=== PATIENT | male | born 1950 | race Caucasian/White ===

== ENCOUNTER 2023-01-26 06:57 | Outpatient (OUT) | payer MEDICARE, SELFPAY ==
[2023-01-26 07:51] LABS: Basophils Percent Auto 0.5 % (0.2-2.0); Eosinophils Absolute Auto 0.3 10^3/uL (0.0-0.7); Eosinophils Percent Auto 3.7 % (0.9-7.0); Hematocrit 44.2 % (42.0-54.0); Hemoglobin 14.7 g/dL (14.0-18.0); Immature Granulocytes Abs Auto 0.01 10^3/uL (0.00-0.03); Immature Granulocytes Pct Auto 0.1 % (0.0-0.5); Lymphocytes Absolute Auto 2.7 10^3/uL (1.2-3.8); Lymphocytes Percent Auto 35.1 % (20.5-60.0); Mean Corpuscular HGB Conc 33.3 g/dL (29.9-35.2); Mean Corpuscular Hemoglobin 28.9 pg (25.9-34.0); Mean Platelet Volume 10.2 fL (9.5-13.5); Monocytes Absolute Auto 0.7 10^3/uL (0.3-0.8); Monocytes Percent Auto 8.9 % (1.7-12.0); Neutrophils Absolute Auto 3.9 10^3/uL (1.4-6.5); Neutrophils Percent Auto 51.7 % (43.0-75.0); Platelet Count 174 10^3/uL (150-450); Red Blood Count 5.08 10^6/uL (4.70-6.10); Red Cell Distribution Width 13.1 % (11.0-15.0); White Blood Count 7.6 10^3/uL (4.0-11.0)
[2023-01-26 08:23] LABS: Alanine Aminotransferase 18 U/L (16-63); Albumin Globulin Ratio 0.9; Albumin Level 3.4 g/dL (3.4-5.0); Alkaline Phosphatase 75 U/L (46-116); Anion Gap 7.9; Aspartate Amino Transferase 12 U/L (15-37); BUN Creatinine Ratio 12.1; Bilirubin Total 0.5 mg/dL (0.2-1.0); Calcium 9.1 mg/dL (8.5-10.1); Carbon Dioxide 31.2 mmol/L (21.0-32.0); Chloride 106 mmol/L (98-107); Chol HDL Ratio 2.4; Cholesterol 119 mg/dL (<=200); Estimated GFR (African America >60 (>=60); Estimated GFR (Non-African Ame >60 (>=60); Globulin 3.6 g/dL; Glucose 104 mg/dL (74-106); HDL Cholesterol 50 mg/dL (40-60); Potassium 4.1 mmol/L (3.5-5.1); Sodium 141 mmol/L (136-145); Triglycerides 70 mg/dL (<=150)
[2023-01-26 08:53] LABS: Prostate Specific Antigen Scrn 0.97 ng/mL (<=4.00)
== END 2023-01-26 06:58 | disposition home or self-care (01) ==
LOC: LAB 07:02
PROVIDERS: PCP Family Medicine; Visit Provider Family Medicine
DX: I10 Essential (primary) hypertension (principal); E78.5 Hyperlipidemia, unspecified; Z12.5 Encounter for screening for malignant neoplasm of prostate
CPT/HCPCS: 36415; 80053; 80061; 85025; G0103

== ENCOUNTER 2023-11-02 08:22 | Outpatient (OUT) | payer MEDICARE, SELFPAY ==
[2023-11-02 08:33] LABS: Basophils Absolute Auto 0.1 10^3/uL (0.0-0.1); Basophils Percent Auto 0.8 % (0.2-2.0); Eosinophils Absolute Auto 0.5 10^3/uL (0.0-0.7); Hematocrit 45.4 % (42.0-54.0); Hemoglobin 15.3 g/dL (14.0-18.0); Immature Granulocytes Abs Auto 0.02 10^3/uL (0.00-0.03); Immature Granulocytes Pct Auto 0.3 % (0.0-0.5); Lymphocytes Absolute Auto 2.8 10^3/uL (1.2-3.8); Lymphocytes Percent Auto 36.4 % (20.5-60.0); Mean Corpuscular HGB Conc 33.7 g/dL (29.9-35.2); Mean Corpuscular Hemoglobin 29.1 pg (25.9-34.0); Mean Corpuscular Volume 86.5 fL (80.0-94.0); Mean Platelet Volume 10.2 fL (9.5-13.5); Monocytes Absolute Auto 0.8 10^3/uL (0.3-0.8); Monocytes Percent Auto 10.5 % (1.7-12.0); Neutrophils Absolute Auto 3.5 10^3/uL (1.4-6.5); Platelet Count 182 10^3/uL (150-450); Red Blood Count 5.25 10^6/uL (4.70-6.10); Red Cell Distribution Width 12.9 % (11.0-15.0); White Blood Count 7.7 10^3/uL (4.0-11.0)
[2023-11-02 09:24] LABS: Alanine Aminotransferase 22 U/L (16-63); Albumin Globulin Ratio 0.9; Albumin Level 3.3 g/dL (3.4-5.0); Alkaline Phosphatase 86 U/L (46-116); Anion Gap 10.6; Aspartate Amino Transferase 18 U/L (15-37); BUN Creatinine Ratio 12.3; Bilirubin Total 0.6 mg/dL (0.2-1.0); Calcium 9.4 mg/dL (8.5-10.1); Carbon Dioxide 28.9 mmol/L (21.0-32.0); Chloride 106 mmol/L (98-107); Chol HDL Ratio 2.5; Cholesterol 123 mg/dL (<=200); Estimated GFR (African America >60 (>=60); Estimated GFR (Non-African Ame >60 (>=60); Globulin 3.5 g/dL; Glucose 113 mg/dL (74-106); HDL Cholesterol 50 mg/dL (40-60); LDL Cholesterol Calculated 63.8 mg/dL; Potassium 4.5 mmol/L (3.5-5.1); Sodium 141 mmol/L (136-145); Total Protein 6.8 g/dL (6.4-8.2); Triglycerides 46 mg/dL (<=150); VLDL CHOLESTEROL 9.2 mg/dL
[2023-11-02 09:29] LABS: Prostate Specific Antigen Scrn 0.73 ng/mL (<=4.00)
== END 2023-11-02 08:23 | disposition home or self-care (01) ==
LOC: LAB 08:22
PROVIDERS: PCP Family Medicine; Visit Provider Family Medicine
DX: E78.00 Pure hypercholesterolemia, unspecified (principal); I10 Essential (primary) hypertension; Z12.5 Encounter for screening for malignant neoplasm of prostate
CPT/HCPCS: 36415; 80053; 80061; 85025; G0103